=== PATIENT | male | born 2000 | race African-American/Black ===

== ENCOUNTER 2021-01-24 19:04 | Emergency (ER) ==
[~2021-01-24] VITALS: Ht 182.9 cm; Wt 81.8 kg
== END 2021-01-24 19:44 | disposition left against medical advice (07) ==
LOC: M ED 19:04
DX: Z53.29 Procedure and treatment not carried out because of patient's decision for other reasons (principal)

== ENCOUNTER 2022-05-27 20:54 | Emergency (ER) | payer OTHER ==
[~2022-05-27] VITALS: Ht 185.4 cm; Wt 92.8 kg
[2022-05-27 20:55] VITALS: BP 136/60
[2022-05-27] MEDS ORDERED: LIDOCAINE 2% MDV 20ML VIAL SC ONE (22:00)
[2022-05-27] MEDS ORDERED: IBUPROFEN 800 MG TAB PO ONE (22:55)
== END 2022-05-27 23:00 | disposition home or self-care (01) ==
LOC: M ED 20:54
DX: S61.011A Laceration without foreign body of right thumb without damage to nail, initial encounter (principal); W26.0XXA Contact with knife, initial encounter; Y92.010 Kitchen of single-family (private) house as the place of occurrence of the external cause; Y93.G3 Activity, cooking and baking; Y99.8 Other external cause status